=== PATIENT | female | born 1955 | race Caucasian/White ===

== ENCOUNTER 2018-03-20 14:21 | Emergency (ER) | payer OTHER ==
[~2018-03-20] VITALS: Ht 160 cm; Wt 81.6 kg
[2018-03-20 14:25] VITALS: Ht 160 cm; Wt 81.6 kg
[2018-03-20 16:24] VITALS: BP 129/69
== END 2018-03-20 16:33 | disposition home or self-care (01) ==
LOC: ED 14:21
DX: M25.551 Pain in right hip (principal); I10 Essential (primary) hypertension; Z88.6 Allergy status to analgesic agent
CPT/HCPCS: J1885

== ENCOUNTER 2019-07-29 17:11 | Inpatient (IN) | payer MEDICAID ==
[~2019-07-29] VITALS: Ht 160 cm; Wt 81.8 kg
--- NOTE | 2019-07-29 17:23 | NUR ---
PT AMBULATORY TO BED ORTHO. PT INST TO PROVIDE URINE VIA CLEAN CATCH.
--- NOTE | 2019-07-29 17:28 | NUR ---
MSE COMPLETED BY DR SUNG. URINE COLLECTED AND DIPPED
--- NOTE | 2019-07-29 17:30 | NUR ---
LAB AT BEDSIDE FOR BLOOD DRAW
[2019-07-29 17:37] LABS: microscopic required? NO
[2019-07-29 17:41] LABS: BASOPHIL % 0.1 % (0-2); PLATELET COUNT 329 x10^3mcL (130-400); RED CELL DISTRIBUTION WIDTH 12.6 % (11.5-14.5)
[2019-07-29 17:42] LABS: urine erythrocyte NEGATIVE (NEGATIVE)
--- NOTE | 2019-07-29 17:49 | NUR ---
PT MEDICATED PER MD ORDERS
[2019-07-29 18:05] LABS: CALCIUM 8.8 mg/dL (8.5-10.1); CARBON DIOXIDE 28.5 mmol/L (21-32); CREATININE SERUM 1.1 mg/dL (0.6-1.0); POTASSIUM SERUM 4.2 mmol/L (3.5-5.1)
[2019-07-29 18:06] LABS: ALBUMIN 3.6 g/dL (3.4-5.0); BILIRUBIN TOTAL 0.5 mg/dL (0.20-1.00)
--- NOTE | 2019-07-29 18:27 | NUR ---
PT FEELING A LOT BETTER 2/10 PAIN LYING IN BED COMFORTABLY NO FURTHER ORDERS AT THIS TIME WILL MONITOR
--- NOTE | 2019-07-29 19:03 | NUR ---
REPORT GIVEN TO BANDAR GALLEGOS RESUMING CARE OF PT AT THIS TIME
--- NOTE | 2019-07-29 19:09 | NUR ---
RECEIVED PT FROM ESTEBAN-RN, PT SEEN, ASLEEP AND APPEARS COMFORTABLE, BREATHING EVEN AND UNLABORED ON ROOM AIR WITH NO RESP DISTRESS NOTED. WILL KEEP TO MONITOR.
[2019-07-29 20:06] LABS: CHOLESTEROL/HDL RATIO 4.6
--- NOTE | 2019-07-29 20:38 | NUR ---
REPORT GIVEN TO EJ, ALL QUESTIONS ANSWERED AND CONCERNS ADDRESSED.
--- NOTE | 2019-07-29 20:45 | NUR ---
RECEIVED REPORT FROM ED RNBANDAR. PT IS AAOX4. PT IS JORDANIAN AND ISRAELI SPEAKING. PT HAS PATENT 20G LAC AND IS SITE WNL. PT DENIES ANY PAIN, NAUSEA, OR VOMITING AT THIS TIME. PT IS NPO. PT HAS ALLERGY TO TYLENOL #3. ADMISSION RENDERED.
--- NOTE | 2019-07-29 21:00 | NUR ---
RECEIVED PT FROM ED VIA MONI, CAME IN DUE TO ABDOMINAL PAIN. AAOX4. DENIES HEADACHE/DIZZINESS. ABLE TO FOLLOW COMMANDS. NO SOB NOTED, LUNG SOUNDS CTA, O2 SAT=99%, RA. DENIES CHEST PAIN/PRESSURE. DENIES ABDOMINAL PAIN/NAUSEA/ VOMITING. ABDOMEN IS SOFT. BOWEL SOUNDS ACTIVE. VOIDS. IV SITE PATENT AND INTACT. RECEIVED PT FROM ED W/ NS ONGOING. SIDE RAILS UPX2. CALL LIGHT ON REACH. ENDORSED TO PRIMARY NURSE LIVIA FOR CONTINUITY OF CARE
[2019-07-29 21:06] VITALS: BP 130/57
[2019-07-29 21:11] VITALS: Ht 160 cm; Wt 81.8 kg
[2019-07-30 01:03] LABS: AMPHETAMINE QUAL UR NONE DETECTED (See below)
[2019-07-30 05:24] VITALS: BP 102/51
--- NOTE | 2019-07-30 06:11 | NUR ---
PT SLEPT MOSTLY THROUGHOUT THE EVENING. PT BREATHING EVEN AND UNLABORED, NO RESPIRATORY DISTRESS NOTED. NO ACUTE CHANGES DURING SHIFT. ALL NEEDS MET AND ANTICIPATED. CALL LIGHT WITHIN REACH. WILL ENDORSE CARE TO AM NURSE.
[2019-07-30 06:13] LABS: BASOPHIL % 0.2 % (0-2); PLATELET COUNT 246 x10^3mcL (130-400)
[2019-07-30 06:19] LABS: CALCIUM 7.9 mg/dL (8.5-10.1); CARBON DIOXIDE 26.5 mmol/L (21-32); MAGNESIUM 2.1 mg/dL (1.8-2.4); PHOSPHOROUS 3.2 mg/dL (2.5-4.9)
[2019-07-30 06:28] LABS: BILIRUBIN DIRECT 0.57 mg/dL (0.0-0.2); BILIRUBIN TOTAL 0.97 mg/dL (0.20-1.00)
[2019-07-30 07:04] LABS: ALBUMIN 2.7 g/dL (3.4-5.0); TOTAL PROTEIN, SERUM 5.7 g/dL (6.4-8.2)
--- NOTE | 2019-07-30 07:10 | NUR ---
RECIEVED PT RESTING IN BED WITH NO C/O DISTRESS OR PAIN. A/O X4. NS 150ML/HR RUNNING IN LAC, INTACT AND PATENT WITH NO REDNESS OR INFLAMMATION NOTED. SAFETY PRECAUTIONS IN PLACE, CALL LIGHT WITHIN REACH, WILL MONITOR.
[2019-07-30 08:07] LABS: POTASSIUM SERUM 5.6 mmol/L (3.5-5.1)
--- NOTE | 2019-07-30 08:29 | NUR ---
DR VARGAS AND TEAM AT BEDSIDE DISCUSSING TREATMENT AND POC WITH PT, WILL FOLLOW THROUGH WITH ANY NEW ORDERS AND WILL MONITOR. MADE AWARE OF POTASSIUM LEVEL OF 5.6, WILL MONITOR.
[2019-07-30 08:36] VITALS: BP 112/60
--- NOTE | 2019-07-30 12:00 | NUR ---
PT STABLE WITH NO C/O PAIN OR DISTRESS AT THIS TIME. SAFETY PRECAUTIONS IN PLACE, CALL LIGHT WITHIN REACH, WILL MONITOR.
--- NOTE | 2019-07-30 14:02 | NUR ---
Discount pharmacy card and list to low cost medical clinics given to patient by Sarah Springer.
--- NOTE | 2019-07-30 16:01 | NUR ---
RECEIVED CALL FROM DR ORNELAS REQUESTING RESULT OF MRCP. RESULTS GIVEN. STATED NO ERCP IS NEEDED AND ORDERED REPEAT OF AMYLASE AND LIPASE TOMORROW WITH AM LABS. WILL NOTIFY PRIMARY RN MOLLY.
--- NOTE | 2019-07-30 16:23 | NUR ---
TORODAL GIVEN PER EMAR FOR C/O 5/10 BACK PAIN, WILL REASSESS.
[2019-07-30 17:19] VITALS: BP 101/55
--- NOTE | 2019-07-30 17:49 | NUR ---
PT STABLE AT THIS TIME WITH NO C/O PAIN OR DISTRESS. VS WNL. A/O X4 WITH NO VILLARREAL OR DIZZINESS. IV INTACT AND PATENT RUNNING NS 100ML/HR. SAFETY PRECAUTIONS IN PLACE, CALL LIGHT WITHIN REACH, WILL ENDORSE TO NIGHT NURSE.
--- NOTE | 2019-07-30 19:00 | NUR ---
REPORT RECEIVED FROM DAY SHIFT RN. PATIENT WAS SEEN RESTING COMFORTABLY IN BED. NO DISTRESS NOTED. BREATHING EVEN AND UNLABORED ON ROOM AIR. NO SOB OR RESP DISTRESS NOTED. DENIES CHEST PAIN/PRESSURE. NO C/O PAIN AT THIS TIME. IV TO THE LAC INFUSING NS WELL AT 150ML/HR. PATENT AND INTACT. NO REDNESS OR SWELLING NOTED. MED SURG PATIENT. COMFORT AND SAFETY MEASURES IN PLACE. CALL LIGHT IS WITHIN REACH. BED IS LOCKED AND IN THE LOWEST POSITION. SIDE RAILS UP X2. WILL CONTINUE TO MONITOR
[2019-07-30 21:19] VITALS: BP 101/42
--- NOTE | 2019-07-30 21:44 | NUR ---
PRN TYLENOL GIVEN FOR HEADACHE 06/29. PER PATIENT, SHE IS NOT ALLERGIC TO TYLENOL, ONLY CODEINE. SHE SAID SHE HAS TAKEN TYLENOL BEFORE AND DID NOT HAVE ANY ADVERSE REACTIONS. NOTIFIED PHARMACY WELL. WILL MONITOR FOR ANY ADVERSE REACTIONS.
--- NOTE | 2019-07-30 22:44 | NUR ---
NO DISTRESS NOTED AFTER PRN TYLENOL GIVEN. RESTING IN BED WITH EYES CLOSED. NO DISTRESS NOTED. BREATHING EVEN AND UNLABORED. NO SOB NOTED. CALL LIGHT IS WITHIN REACH. WILL CONTINUE TO MONITOR.
--- NOTE | 2019-07-31 01:32 | NUR ---
RESTING IN BED WITH EYES CLOSED. NO DISTRESS NOTED. BREATHING EVEN AND UNLABORED ON ROOM AIR. NO SOB NOTED. IVF INFUSING WELL AT 150 ML/HR. PATENT AND INTACT. NO S/S OF PAIN NOTED. SAFETY MEASURES IN PLACE. CALL LIGHT WITHIN REACH. WILL CONTINUE TO MONITOR.
--- NOTE | 2019-07-31 05:08 | NUR ---
C/O 07/29 ABD PAIN. PRN TORADOL WAS ADMINISTERED PRESCRIBED. MED EDUCATION GIVEN. NO DISTRESS NOTED, MONAING NOTED AND FACIAL GRIMACING NOTED. BREATHING EVEN AND UNLABORED ON ROOM AIR. NO SOB. SAFETY MEASURES IN PLACE. CALL LIGHT IS WITHIN REACH. WILL CONTINUE TO MONITOR.
[2019-07-31 05:11] VITALS: BP 109/48
--- NOTE | 2019-07-31 06:11 | NUR ---
RESTED IN INTERVALS THROUGHOUT THE NIGHT. NO ACUTE CHANGES NOTED. BREATHING EVEN AND UNLABORED ON ROOM AIR. NO SOB OR RESP DISTRESS NOTED. NO DISTRESS NOTED. DENIES CHEST PAIN/PRESSURE. C/O PAIN X2. MEDICATED WITH TYLENOL X1 WITH NO ADVERSE REACTIONS NOTED FOR HEADACHE. MEDICATED WITH TORADOL X1 WITH GOOD RELIEF FOR ABD PAIN. IV TO THE LAC, INFUSING WELL. PATENT AND INTACT. NO REDNESS OR SWELLING NOTED. DENIES N/V. NPO. COMFORT AND SAFETY MEASURES IN PLACE. CALL LIGHT IS WITHIN REACH. WILL ENDORSE CARE TO DAY SHIFT RN.
[2019-07-31 06:40] LABS: CALCIUM 7.5 mg/dL (8.5-10.1); CARBON DIOXIDE 20.8 mmol/L (21-32); CHLORIDE SERUM 111 mmol/L (98-107); CREATININE SERUM 0.8 mg/dL (0.6-1.0); GFR1 > 60 mL/min; GLUCOSE SERUM 86 mg/dL (74-106); MAGNESIUM 1.7 mg/dL (1.8-2.4); PHOSPHOROUS 2.5 mg/dL (2.5-4.9); POTASSIUM SERUM 3.8 mmol/L (3.5-5.1); SODIUM SERUM 140 mmol/L (136-145)
[2019-07-31 07:08] LABS: BILIRUBIN DIRECT 0.26 mg/dL (0.0-0.2); BILIRUBIN TOTAL 0.7 mg/dL (0.20-1.00)
[2019-07-31 07:11] LABS: ALBUMIN 2.3 g/dL (3.4-5.0); TOTAL PROTEIN, SERUM 5.8 g/dL (6.4-8.2)
[2019-07-31 07:13] LABS: BASOPHIL % 0.3 % (0-2); PLATELET COUNT 196 x10^3mcL (130-400)
--- NOTE | 2019-07-31 07:35 | NUR ---
RECEIVED PT IN BED. SLEEPING THIS TIME. DENIES ANY PAIN. SAFTEY PRECAUTIONS ARE IN PLACE. WILL MONITOR.
--- NOTE | 2019-07-31 08:30 | NUR ---
PT TOLERATED WITH CL DIET, NO NAUSEA NOTED.
--- NOTE | 2019-07-31 09:03 | NUR ---
PT C/O HEADACHE AND ABD PAIN,01/27. ADMINISTERED TYLENOL PO ORDERED. INFORMED ABOUT THAT.
[2019-07-31 09:07] VITALS: BP 109/32
--- NOTE | 2019-07-31 10:03 | NUR ---
PT IS SLEEPING THIS TIME. STABLE.
--- NOTE | 2019-07-31 13:00 | NUR ---
PT HAD FULL LIQUID DIET. NO NAUSEA NOTED. TOLERATED WELL. DENIES ANY PAIN THIS TIME. STABLE.
[2019-07-31 13:42] VITALS: BP 113/45
[2019-07-31 17:54] VITALS: BP 112/46
--- NOTE | 2019-07-31 18:13 | NUR ---
PT WAS C/O ABDOMINAL PAIN. ADMINISTERED TORADOL IV 15MG ORDERED AT 1743. REASSESSED AT 181 AND PT SAID SHE DOESNOT HAVE PAIN ANY MORE. STABLE.
--- NOTE | 2019-07-31 19:20 | NUR ---
PT RESTING IN BED COMFORTABLY. DENIES PAIN THIS TIME. STABLE. GAVE REPORT TO CYBER REVERSE ENGINEER NURSE.
--- NOTE | 2019-07-31 19:30 | NUR ---
PT RECIEVED FROM DAY NURSE. PT RESTING IN BED AT THIS TIME. DENIES PAIN OR DISCOMFORT. A/O X4, CALM AND COOPERATIVE. PT MS. DENIES CP, NV, DIZZINESS OR PALPATATIONS. BREATHING E/U ON RA. ABD SOFT AND ROUND. STATES PAIN TO MANDI UPPER QUADRANTS. IV TO LAC, CDI. BED AT LOWEST POSITION. CALL LIGHT WITHIN REACH. WILL CONTINUE TO MONITOR.
[2019-07-31 20:35] VITALS: BP 114/50
--- NOTE | 2019-08-01 | NUR ---
PT RESTING IN BED AT THIS TIME. NO S/S OF PAIN OR DISCOMFORT AT THIS TIME. BREATHING E/U ON RA. NO SIGNS OF ACUTE DISTRESS NOTED AT THIS TIME. BED AT LOWEST POSITION. CALL LIGHT WITHIN REACH, WILL CONTINUE TO MONITOR.
[2019-08-01 04:50] VITALS: BP 122/52
--- NOTE | 2019-08-01 06:18 | NUR ---
PT RESTING IN BED AT THIS TIME. DENIES PAIN OR DISCOMFORT AT THIS TIME. BREATHING E/U ON RA. NO SIGNS OF ACUTE DISTRESS AT THIS TIME. ALL NEEDS AND CONCERNS ADDRESSED THIS SHIFT. BED AT LOWEST POSITION. CALL LIGHT WITHIN REACH. WILL ENDORSE TO DAY NURSE.
[2019-08-01 06:56] LABS: CALCIUM 7.6 mg/dL (8.5-10.1); CARBON DIOXIDE 22.2 mmol/L (21-32); CHLORIDE SERUM 110 mmol/L (98-107); CREATININE SERUM 0.7 mg/dL (0.6-1.0); GFR1 > 60 mL/min; GLUCOSE SERUM 95 mg/dL (74-106); MAGNESIUM 1.9 mg/dL (1.8-2.4); PHOSPHOROUS 1.7 mg/dL (2.5-4.9); SODIUM SERUM 139 mmol/L (136-145)
[2019-08-01 07:14] LABS: BASOPHIL % 0.2 % (0-2); RED CELL DISTRIBUTION WIDTH 12.9 % (11.5-14.5)
[2019-08-01 07:26] LABS: PLATELET COUNT 125 x10^3mcL (130-400)
--- NOTE | 2019-08-01 07:45 | NUR ---
RECEIVED PT IN BED. ASSESSED AND DOCUMENTED. DENIES ANY PAIN THIS TIME. SLEEPING THIS TIME. SAFETY PRECAUTIONS ARE IN PLACE. WILL MONITOR.
--- NOTE | 2019-08-01 08:30 | NUR ---
INFORMED SKILL TRAINING PROGRAM COORDINATOR INEZ ABOUT PT PHOS LEVEL 1.7. NO NEW ORDER RECEIVED THIS TIME.
[2019-08-01 09:07] VITALS: BP 113/47
--- NOTE | 2019-08-01 09:44 | NUR ---
PT SAID SHE HAD A SMALL BM BUT NOT ENOUGH ASKED FOR STOOL SOFTNER. COLACE PO GIVEN ORDERED. ENCOURAGED PT TO DRINK ENOUGH WATER.
--- NOTE | 2019-08-01 12:00 | NUR ---
PT AMBULATING IN THE HALLWAY. DENIES ANY PAIN THIS TIME. NO DISTRESS NOTED.
--- NOTE | 2019-08-01 13:00 | NUR ---
PT HAD FULL LIQUID DIET FOR LUNCH, TOLERATED WELL. NO N/V. DENIES ANY PAIN.
[2019-08-01 17:05] VITALS: BP 123/56
--- NOTE | 2019-08-01 18:00 | NUR ---
PT RESTING IN BED COMFORTABLY. DENIES ANY PAIN. ATE DINNER, TOLERATED WELL. STABLE.
--- NOTE | 2019-08-01 19:00 | NUR ---
REPORT RECEIVED FROM DAY SHIFT RN. PATIENT WAS SEEN RESTING COMFORTABLY IN BED. NO DISTRESS NOTED. BREATHING EVEN AND UNLABORED ON ROOM AIR. NO SOB OR RESP DISTRESS NOTED. DENIES CHEST PAIN. REPORTS 04/28 ABD PAIN AND HEADACHE. WILL MEDICATE LATER. IV TO THE LAC INFUSING WELL. PATENT AND INTACT. NO REDNESS OR SWELLING NOTED. COMFORT AND SAFETY MEASURES IN PLACE. CALL LIGHT IS WITHIN REACH. WILL CONTINUE TO MONITOR
--- NOTE | 2019-08-01 19:01 | NUR ---
PT RESTING IN BED COMFORTABLY. DENIES ANY PAIN. STABLE. GAVE REPORT TO DELINQUENCY COUNSELOR NURSE.
--- NOTE | 2019-08-01 19:51 | NUR ---
C/O 05/29 ABD PAIN AND HEADACHE. MEDICATED WITH PRN TORADOL IVP PRESCRIBED. MED EDUCATION GIVEN. NO DISTRESS NOTED. BREATHING EVEN AND UNLABORED ON ROOM AIR. SAFETY MEASURES IN PLACE. CALL LIGHT IS WITHIN REACH. WILL CONTINUE TO MONITOR.
[2019-08-01 20:26] VITALS: BP 133/58
--- NOTE | 2019-08-02 01:37 | NUR ---
RESTING IN BED WITH EYES CLOSED. NO DISTRESS NOTED. BREATHING EVEN AND UNLABORED ON ROOM AIR. NO SOB OR RESP DISTRESS NOTED. NO S/S OF PAIN NOTED. IVF INFUSING WELL. SAFETY MEASURES IN PLACE. CALL LIGHT IS WITHIN REACH. WILL CONTINUE TO MONITOR.
--- NOTE | 2019-08-02 04:49 | NUR ---
C/O 03/29 ABD PAIN AND HEADACHE. MEDICATED WITH PRN TORADOL PER ORDER. NO DISTRESS NOTED. BREATHING EVEN. ASSISTED PATIENT IN REPOSITIONING ONTO RIGHT SIDE. SAFETY MEASURES IN PLACE. CALL LIGHT IS WITHIN REACH. WILL CONTINUE TO MONITOR.
[2019-08-02 05:00] VITALS: BP 118/50
--- NOTE | 2019-08-02 06:07 | NUR ---
RESTED IN INTERVALS THROUGHOUT THE NIGHT. NO ACUTE CHANGES NOTED. BREATHING EVEN AND UNLABORED ON ROOM AIR. NO SOB NOTED. C/O ABD PAIN AND VILLARREAL X2. MEDICATED WITH TORADOL WITH GOOD RELIEF. IVF INFUSING WELL. PATENT AND INTACT. NO REDNESS OR SWELLING NOTED. SAFETY MEASURSE IN PLACE. CALL LIGHT IS WITHIN REACH. WILL ENDORSE CARE TO DAY SHIFT RN.
[2019-08-02 06:18] LABS: BASOPHIL % 0.6 % (0-2); PLATELET COUNT 243 x10^3mcL (130-400)
[2019-08-02 06:32] LABS: CALCIUM 7.8 mg/dL (8.5-10.1); CARBON DIOXIDE 27.1 mmol/L (21-32); CHLORIDE SERUM 112 mmol/L (98-107); CREATININE SERUM 0.9 mg/dL (0.6-1.0); GFR1 > 60 mL/min; GLUCOSE SERUM 96 mg/dL (74-106); POTASSIUM SERUM 5.2 mmol/L (3.5-5.1); SODIUM SERUM 144 mmol/L (136-145)
[2019-08-02 08:28] VITALS: BP 123/69
--- NOTE | 2019-08-02 09:52 | NUR ---
PT SHOWERED GOWN AND LINENS CHANGED.
--- NOTE | 2019-08-02 11:11 | NUR ---
CHANGED IV SITE TO RT FA LEFT ARM WAS GETTING SWOLLEN. PT AMBULATED IN HALLWAY THIS AM.
[2019-08-02 16:49] VITALS: BP 136/54
--- NOTE | 2019-08-02 19:25 | NUR ---
RESTING COMFORTABLY. NO PAIN MEDS ADMIN THIS SHIFT. TOLERATES REG DIET WELL. MOM EFFECTIVE. 1 SM ,1 MED HARD BMS THIS SHIFT. PT ASKING FOR ANOTHER DOSE OF MOM. ENDORSED TO NOC SHIFT FOR TOMORROW. NS INFUISNG 150 CC HOUR. RECEIVED SODIUM PHOSPHATE IV TODAY FOR LOW PHOS. JEWEL CORNER BRUSHING MACHINE OPERATOR AWARE OF K 5.2. INDEPENDENT W ADL'S. CALL LIGHT WITHIN REACH. AMBULATED IN HALLWAY.
--- NOTE | 2019-08-02 19:35 | NUR ---
RECEIVE REPORT FROM AM NURSE. PT LAYING DOWN IN BED. AAOX4, ABLE TO MAKE NEEDS KNOWN. MED-SURG, DENIES CP/PRESSURE AT THIS TIME. PALPABLE PULSES TO ALL EXTREMETIES, NO EDEMA NOTED. LUNG SOUNDS CTA. BREATHING EVEN AND UNLABORED ON RA. NO ACUTE DISTRESS NOTED. AND SOFT AND ROUND, ACTIVE BS X4 QUAD.DENIES N/V/D. LAST BM 08/02/19. C/O CONSTIPATION. WILL MEDICATE PER DEC. VOIDS FREELY, BRP. AMBULATORY. IV TP RFA INFUSING NS AT 150ML/HR,SITE WNL. BED AT LOWEST SETTING. SIDE RAILS X2 UP. CALL LIGHT [facility] REACH. WILL CONTINUE TO MONITOR.
[2019-08-02 19:40] VITALS: BP 127/62
--- NOTE | 2019-08-02 21:20 | NUR ---
PT C/O H/A 01/27 PAIN. MEDICATED WITH PRN TYLENOL PER DEC. NO ACUTE DISTRESS NOTED. WILL CONTINUE TO MONITOR.
--- NOTE | 2019-08-03 00:06 | NUR ---
PT LAYING DOWN IN BED WITH EYES CLOSED. BREATHING EVEN AND UNLABORED ON RA. NO ACUTE DISTRESS NOTED. BED AT LOWEST SETTING. SIDE RAILS X2 UP. CALL LIGHT WITHING REACH. WILL CONTINUE TO MONITOR.
[2019-08-03 04:16] VITALS: BP 124/66
--- NOTE | 2019-08-03 05:21 | NUR ---
PT SLEPT AT INTERVALS THROUGHOUT THE NIGHT, BREATHING EVEN AND UNLABORED ON RA. NO SIGNIFICANT CHANGES DURING SHIFT. ALL NEEDS ASSESSED AND ATTENDED TO. NO ACUTE DISTRESS NOTED. IV TO RFA INFUSING NS AT 150ML/HR. SITE WNL. BED AT LOWEST SETTING. SIDE RAILS X2 UP. CALL LIGHT WITHING REACH. WILL ENDORSE CARE TO AM NURSE.
[2019-08-03 06:14] LABS: BASOPHIL % 0.4 % (0-2); PLATELET COUNT 256 x10^3mcL (130-400); RED CELL DISTRIBUTION WIDTH 13.3 % (11.5-14.5)
[2019-08-03 06:17] LABS: CARBON DIOXIDE 25.5 mmol/L (21-32); CHLORIDE SERUM 109 mmol/L (98-107); CREATININE SERUM 0.7 mg/dL (0.6-1.0); GFR1 > 60 mL/min; GLUCOSE SERUM 106 mg/dL (74-106); POTASSIUM SERUM 3.6 mmol/L (3.5-5.1); SODIUM SERUM 142 mmol/L (136-145)
--- NOTE | 2019-08-03 07:30 | NUR ---
PATIENT AWAKE/ALERT IN BED NO COMPLAIN, NO PAIN AT THIS TIME. IV TO RFA INTACT AND WRAPPED. POC EXPLAINED. CALL LIGHT WITHIN REACH.
[2019-08-03 08:52] VITALS: BP 134/70
--- NOTE | 2019-08-03 11:09 | NUR ---
PATIENT LAYING IN BED ON THE PHONE NO COMPLAIN, REPLACE NEW BAG IVF. NEEDS MET. CALL LIGHT WITHIN REACH.
--- NOTE | 2019-08-03 11:31 | NUR ---
TIP OUT WORKER SEEN PATIENT AT THIS TIME, DISCUSS PLAN TO DISCHARGE PATIENT THIS AFTERNOON. PER PATIENT ONLY HAVE PAIN W/ MOVEMENT.
[2019-08-03] MEDS ORDERED: GOOD SENSE OMEP20 MG PO (12:29)
[2019-08-03 12:49] VITALS: BP 134/70
--- NOTE | 2019-08-03 15:27 | NUR ---
PATIENT RESTING IN BED NO COMPLAIN, GAVE DISCHARGE INSTRUCTION AND INSTRUCT PATIENT TO DIRECTOR TITLE MEDICINE AT [facility] IN [place]. INSTRUCT PATIENT F/U CLINIC OFFICE WITH CONTACT HER TO SET UP APPT. PATIENT VERBALIZE UNDERSTAND. REMOVED IV TO RFA W/ CATHETER INTACT, GAUZES APPLIED SITE. NO S/S OF INFECTION NOTED. INFORM PATIENT TO CALL WHEN READY TO LEAVE.
--- NOTE | 2019-08-03 15:30 | NUR ---
PATIENT IS WHEELOUT BY SUPERVISOR DYER WITH ALL BELONGINGS.
== END 2019-08-03 15:30 | disposition home or self-care (01) | DRG 282 ==
LOC: ED 17:11 → MU 19:51
PROVIDERS: Emergency Medicine; ADMIT Family Medicine
DX: K85.90 Acute pancreatitis without necrosis or infection, unspecified (principal); N17.0 Acute kidney failure with tubular necrosis; R65.11 Systemic inflammatory response syndrome (SIRS) of non-infectious origin with acute organ dysfunction; R74.0 Nonspecific elevation of levels of transaminase and lactic acid dehydrogenase [LDH]; Z68.31 Body mass index [BMI] 31.0-31.9, adult; Z87.442 Personal history of urinary calculi; Z85.42 Personal history of malignant neoplasm of other parts of uterus
CPT/HCPCS: 74181; 90658; G0378; J1885; J2405; J2543; J3010; J3490; J7030; Q0092

== ENCOUNTER 2019-08-11 14:38 | Emergency (ER) | payer MEDICAID ==
[~2019-08-11] VITALS: Ht 160 cm; Wt 79.8 kg
[~2019-08-11 14:38] MED LIST: GOOD SENSE OMEP20 MG PO
[2019-08-11 15:02] VITALS: Ht 160 cm; Wt 79.8 kg
[2019-08-11 19:04] VITALS: BP 138/63
== END 2019-08-11 19:04 | disposition home or self-care (01) ==
LOC: ED 14:38
DX: K59.00 Constipation, unspecified (principal); K64.4 Residual hemorrhoidal skin tags; Z87.442 Personal history of urinary calculi; Z88.5 Allergy status to narcotic agent; Z88.8 Allergy status to other drugs, medicaments and biological substances

== ENCOUNTER 2020-06-07 14:23 | Emergency (ER) | payer OTHER ==
[~2020-06-07] VITALS: Ht 160 cm; Wt 78.5 kg
[2020-06-07 14:25] VITALS: BP 137/66; Ht 160 cm; Wt 78.5 kg
== END 2020-06-07 15:55 | disposition home or self-care (01) ==
LOC: ED 14:23
DX: S46.911A Strain of unspecified muscle, fascia and tendon at shoulder and upper arm level, right arm, initial encounter (principal); M13.811 Other specified arthritis, right shoulder; Z88.5 Allergy status to narcotic agent; Z87.442 Personal history of urinary calculi; X50.0XXA Overexertion from strenuous movement or load, initial encounter; Y93.89 Activity, other specified; Y92.89 Other specified places as the place of occurrence of the external cause; Y99.8 Other external cause status

== ENCOUNTER 2020-12-28 12:17 | Emergency (ER) | payer OTHER ==
[~2020-12-28] VITALS: Ht 157.5 cm; Wt 78.9 kg
[2020-12-28 12:31] VITALS: BP 164/75; Ht 157.5 cm; Wt 78.9 kg
[2020-12-28] MEDS ORDERED: FLONASE ALLERG9.9 ML NS (12:50)
[2020-12-28] MEDS ORDERED: GOOD NEIGHBOR M25 MG PO (12:50)
== END 2020-12-28 12:59 | disposition home or self-care (01) ==
LOC: ED 12:17
DX: B34.9 Viral infection, unspecified (principal); Z88.5 Allergy status to narcotic agent; Z87.442 Personal history of urinary calculi